=== PATIENT | female | born 1950 | race Two or more races ===

== ENCOUNTER 2017-12-09 19:15 | Inpatient (IN) | payer MEDICARE ==
[~2017-12-09] VITALS: Ht 167.6 cm; Wt 83.5 kg
--- NOTE | 2017-12-09 19:30 | NUR ---
Admitted a 67 y/o female from [facility], on 5250 hold, based on hold patient reported suicidal ideation, was holding a knife and a brick. She continues to have SI "sometimes". Also c/o feeling anxious and poor sleep. Patient reports current stressors includes pending homelessness. Patient admitting dx. of psychosis and medical Dx. GERD. 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 Monson and Dr. Castillo to reconcile medication. Kept clean, dry and comfortable. Will continue to monitor [id number] for safety
[2017-12-09] MEDS ORDERED: MAG HYDROX/AL HYDROX/SIMETH 30 ML UDC PO PRN (21:30)
[2017-12-09] MEDS ORDERED: MAGNESIUM HYDROXIDE 30 ML UDC PO PRN (21:30)
[2017-12-09] MEDS ORDERED: ACETAMINOPHEN 325 MG TABLET PO PRN (21:30)
[2017-12-09] MEDS ORDERED: QUET25TA PO (21:47)
[2017-12-09] MEDS ORDERED: BENZ1LOZ58 MM (21:47)
[2017-12-09] MEDS ORDERED: HYDR-3028 PO (21:47)
[2017-12-09] MEDS ORDERED: TRAZ-147 PO (21:47)
[2017-12-09] MEDS ORDERED: OMEP40CA37 PO (21:47)
[2017-12-09] MEDS: TEMAZEPAM 7.5 MG CAPSULE PO PRN (22:15)
[2017-12-10] MEDS: LORAZEPAM 0.5 MG TABLET PO PRN ×3 (00:17→20:41)
[2017-12-10 00:54] VITALS: BP 117/80
[2017-12-10 03:31] LABS: APPEARANCE,URINE CLEAR (CLEAR); BILIRUBIN,URINE NEGATIVE (NEGATIVE); BLOOD, URINE NEGATIVE Ery/uL (NEGATIVE); COLOR,URINE YELLOW (YELLOW); KETONES,URINE NEGATIVE (NEGATIVE); LEUKOCYTE ESTERASE ,URINE NEGATIVE (NEGATIVE); NITRITE, URINE NEGATIVE (NEGATIVE); PROTEIN,URINE NEGATIVE (NEGATIVE); UGLUCOSE NEGATIVE (NEGATIVE); UROBILINOGEN,URINE 0.2 EU/dL (0.2)
[2017-12-10 08:00] VITALS: BP 111/70
[2017-12-10 08:06] LABS: CHOLESTEROL 227 mg/dL (<200); HDL CHOLESTEROL 50 mg/dL (40-60); LDL 154 mg/dL (0-99); TRIGLYCERIDES 105 mg/dL (30-150)
[2017-12-10 08:08] LABS: BILIRUBIN,TOTAL 0.4 mg/dL (0.2-1.0); CALCIUM, SERUM 8.8 mg/dL (8.5-10.1); CREATININE 0.7 mg/dL (0.6-1.3); POTASSIUM 3.3 mmol/L (3.5-5.1)
[2017-12-10] MEDS ORDERED: MENTHOL/CETYLPYRD (CEPACOL) 1 LOZ LOZENGE MM PRN (09:00)
[2017-12-10] MEDS: PANTOPRAZOLE 40 MG TABLET.DR PO SCH (09:01)
[2017-12-10] MEDS ORDERED: POTASSIUM CHLORIDE 20 MEQ TAB.PRT.SR PO ONE (10:00)
[2017-12-10] MEDS ORDERED: QUETIAPINE FUMARATE 25 MG TABLET PO PRN (14:00)
[2017-12-10 16:00] VITALS: BP 117/68
[2017-12-10] MEDS: QUETIAPINE FUMARATE 25 MG TABLET PO SCH (16:47)
[2017-12-10 20:00] VITALS: BP 96/50
[2017-12-10 20:26] VITALS: BP 96/48
--- NOTE | 2017-12-10 20:46 | NUR ---
RN NOTES COMPLAINED OF FEELING ANXIOUS, ATIVAN 0.5 MG PO GIVEN ORDERED, V/S STABLE
[2017-12-10] MEDS ORDERED: QUETIAPINE FUMARATE 25 MG TABLET PO SCH (22:00)
[2017-12-11 08:00] VITALS: BP 113/69
[2017-12-11] MEDS: PANTOPRAZOLE 40 MG TABLET.DR PO SCH (08:06)
[2017-12-11] MEDS: QUETIAPINE FUMARATE 25 MG TABLET PO SCH ×2 (08:18→16:39)
[2017-12-11] MEDS: LORAZEPAM 0.5 MG TABLET PO PRN ×2 (11:27→19:33)
--- NOTE | 2017-12-11 11:30 | NUR ---
GPS/RN-NOTES PATIENT REQUESTING FOR ATIVAN. STATED" I NEED IT BECAUSE I'M VERY ANXIOUS". ATIVAN 0.5MG P.O GIVEN PRN ORDER. WILL CONT. MONITORING FOR SAFETY AND BEHAVIOR.
--- NOTE | 2017-12-11 12:30 | NUR ---
GPS/RN-NOTES PATIENT IN HER ROOM AWAKE,ALERT CALM NO ACUTE DISTRESS NOTED.
[2017-12-11 16:00] VITALS: BP 105/57
--- NOTE | 2017-12-11 16:32 | NUR ---
Initial Discharge Plan: Pt currently resides by herself at [address] [place] [address], [address], [place] [address] ([phone]). Per pt, she would not like to return to her apartment but does not have anywhere else to go. SW will work with the pt and the MD regarding appropriate discharge plans. SW will form a safe and proper discharge.
[2017-12-11 20:00] VITALS: BP 118/68
[2017-12-11] MEDS: DIVALPROEX SODIUM 250 MG TABLET.DR PO SCH (20:45)
[2017-12-11] MEDS ORDERED: QUETIAPINE FUMARATE 25 MG TABLET PO SCH (22:00)
[2017-12-11] MEDS: TEMAZEPAM 7.5 MG CAPSULE PO PRN (22:32)
[2017-12-12 08:00] VITALS: BP 99/56
[2017-12-12] MEDS: LORAZEPAM 0.5 MG TABLET PO PRN ×2 (09:00→16:15)
[2017-12-12] MEDS: QUETIAPINE FUMARATE 25 MG TABLET PO SCH ×2 (09:00→17:46)
[2017-12-12] MEDS: PANTOPRAZOLE 40 MG TABLET.DR PO SCH (09:00)
[2017-12-12] MEDS: DIVALPROEX SODIUM 250 MG TABLET.DR PO SCH ×2 (09:05→22:16)
[2017-12-12 16:00] VITALS: BP 113/58
--- NOTE | 2017-12-12 16:15 | NUR ---
RN NOTES ADMINISTERED ATIVAN 0.5 MG PO PRN FOR ANXIETY, PER PATIENT REQUEST, V/S TAKEN BP- 121/70, P-100, CONTINUED MONITORING.
[2017-12-12 20:00] VITALS: BP 102/52
[2017-12-12] MEDS ORDERED: QUETIAPINE FUMARATE 25 MG TABLET PO SCH (22:00)
[2017-12-12] MEDS: TEMAZEPAM 7.5 MG CAPSULE PO PRN (22:17)
[2017-12-13 08:00] VITALS: BP 122/62
[2017-12-13] MEDS: QUETIAPINE FUMARATE 25 MG TABLET PO SCH ×3 (08:03→21:59)
[2017-12-13] MEDS: DIVALPROEX SODIUM 250 MG TABLET.DR PO SCH ×2 (08:03→21:58)
[2017-12-13] MEDS: PANTOPRAZOLE 40 MG TABLET.DR PO SCH (08:03)
[2017-12-13] MEDS: LORAZEPAM 0.5 MG TABLET PO PRN (11:25)
--- NOTE | 2017-12-13 11:26 | NUR ---
GPS/RN-NOTES PATIENT REQUESTING FOR ATIVAN. STATED" I NEED IT BECAUSE I'M SHAKING I'M VERY ANXIOUS". ATIVAN 0.5MG P.O GIVEN PRN ORDER. WILL CONT. MONITORING FOR SAFETY AND BEHAVIOR.
--- NOTE | 2017-12-13 12:30 | NUR ---
GPS/RN-NOTES PATIENT WATCHING TV IN THE DAY ROOM,CALM,NO ACUTE DISTRESS NOTED.
[2017-12-13 16:00] VITALS: BP 97/68
[2017-12-13 20:00] VITALS: BP 117/68
[2017-12-13] MEDS: TEMAZEPAM 7.5 MG CAPSULE PO PRN (21:59)
[2017-12-14] MEDS: PANTOPRAZOLE 40 MG TABLET.DR PO SCH (07:47)
[2017-12-14 08:00] VITALS: BP 110/69
[2017-12-14] MEDS: QUETIAPINE FUMARATE 25 MG TABLET PO SCH ×3 (08:38→22:06)
[2017-12-14] MEDS: DIVALPROEX SODIUM 250 MG TABLET.DR PO SCH ×2 (08:38→20:48)
[2017-12-14] MEDS: LORAZEPAM 0.5 MG TABLET PO PRN (13:56)
--- NOTE | 2017-12-14 14:13 | NUR ---
GPS/RN-NOTES PATIENT STATED" I NEED MY ATIVAN BECAUSE I'M ANXIOUS ". ATIVAN 0.5MG P.O GIVEN PRN ORDER. WILL CONT. MONITORING FOR SAFETY AND BEHAVIOR.
[2017-12-14 16:06] VITALS: BP 116/59
[2017-12-14 20:46] VITALS: BP 101/53
[2017-12-14] MEDS: TEMAZEPAM 7.5 MG CAPSULE PO PRN (23:34)
--- NOTE | 2017-12-14 23:34 | NUR ---
TEMAZEPAM 7.5 MG CAP GIVEN FOR SLEEP PER PATIENT'S REQUEST
[2017-12-15 08:00] VITALS: BP 100/55
[2017-12-15] MEDS: DIVALPROEX SODIUM 250 MG TABLET.DR PO SCH ×2 (08:20→22:02)
[2017-12-15] MEDS: QUETIAPINE FUMARATE 25 MG TABLET PO SCH ×3 (08:20→22:02)
[2017-12-15] MEDS: PANTOPRAZOLE 40 MG TABLET.DR PO SCH (08:20)
--- NOTE | 2017-12-15 13:38 | NUR ---
GERARDO spoke to the pt's son, Yvan ([phone]), and informed him about how [facility] accepted her and how that is her discharge plan.
--- NOTE | 2017-12-15 13:41 | NUR ---
SW called the pt's daughter in law, Tete ([phone]), per the pt's request. Tete did not answer and so the SW left a message.
[2017-12-15] MEDS: LORAZEPAM 0.5 MG TABLET PO PRN (13:54)
[2017-12-15 16:00] VITALS: BP 107/58
--- NOTE | 2017-12-15 16:11 | NUR ---
GERARDO spoke to the pt's son, Yvan ([phone]), and answered some more of his questions and informed him of her schedule so that he could stop by and meet with her face to face.
--- NOTE | 2017-12-15 19:30 | NUR ---
GPS RN NOTE, RECEIVED PATIENT AWAKE AND IN BED, PATIENT HAS NO S/S OR COMPLAINTS OF PAIN. PATIENT IS DISPLAYING NO S/S OF APPARENT DISTRESS AT THIS TIME. PATIENT BREATHING IS UNLABORED WITH EQUAL RISE AND FALL OF THE CHEST. PATIENT IS ALERT AND ORIENTED X 3 ON ROOM AIR WITH A SPO2 95%. PATIENT IS MEDICATION COMPLIANT, DISORGANIZED, COOPERATIVE, ANXIOUS AT TIMES, AND NEEDS CONSTANT REORIENTATION. PATIENT DENIES SUICIDE IDEATIONS AND HOMICIDAL IDEATIONS AT THIS TIME. PATIENT ASSISTED WITH TURNING AND REPOSITIONING Q2 HR AND PRN FOR COMFORT AND CIRCULATION. PATIENT HAS NO NEEDS AT THIS TIME. PATIENT EDUCATED ON THE USE OF THE CALL MONTENEGRO. PATIENT BED SIDE RAILS UP X 2 FOR SAFETY, BED LOCKED AND LOW WILL CONTINUE TO MONITOR AND MAINTAIN SAFETY Q15 MIN WITH THE HELP OF STAFF.
[2017-12-15 21:10] VITALS: BP 118/68
[2017-12-16 08:00] VITALS: BP 115/76
[2017-12-16] MEDS: QUETIAPINE FUMARATE 25 MG TABLET PO SCH ×4 (09:00→21:13)
[2017-12-16] MEDS: DIVALPROEX SODIUM 250 MG TABLET.DR PO SCH ×2 (09:10→21:13)
[2017-12-16] MEDS: PANTOPRAZOLE 40 MG TABLET.DR PO SCH (09:10)
[2017-12-16] MEDS: LORAZEPAM 0.5 MG TABLET PO PRN ×2 (13:07→21:13)
[2017-12-16 16:00] VITALS: BP 107/62
[2017-12-16 20:20] VITALS: BP 104/49
--- NOTE | 2017-12-16 21:15 | NUR ---
GPS RN NOTE: PATIENT ANXIOUS , ATIVAN 0.5MG 1 TAB ORAL GIVEN PER MD ORDER. WILL CONTINUE TO MONITOR.
[2017-12-17] MEDS: PANTOPRAZOLE 40 MG TABLET.DR PO SCH (07:30)
[2017-12-17 08:00] VITALS: BP 103/56
[2017-12-17] MEDS: DIVALPROEX SODIUM 250 MG TABLET.DR PO SCH ×2 (08:56→21:42)
[2017-12-17] MEDS: QUETIAPINE FUMARATE 25 MG TABLET PO SCH ×3 (08:59→21:42)
[2017-12-17 17:08] VITALS: BP 135/77
--- NOTE | 2017-12-17 18:55 | NUR ---
GPS RN NOTE, PATIENT HAS A COMPLAINT OF A HEADACHE AT 3 OUT 10 ON THE PAIN SCALE. PATIENT VITAL SIGNS ARE STABLE. GAVE TYLENOL 650MG PO Q6HR PRN ORDERED. WILL REASSESS FOR PAIN AND I WILL CONTINUE TO MONITOR THIS PATIENT.
[2017-12-17 20:49] VITALS: BP 114/71
[2017-12-17] MEDS: LORAZEPAM 0.5 MG TABLET PO PRN (22:04)
[2017-12-18 08:00] VITALS: BP 114/60
[2017-12-18] MEDS: DIVALPROEX SODIUM 250 MG TABLET.DR PO SCH ×3 (08:10→21:42)
[2017-12-18] MEDS: PANTOPRAZOLE 40 MG TABLET.DR PO SCH (08:10)
[2017-12-18] MEDS: QUETIAPINE FUMARATE 25 MG TABLET PO SCH ×3 (08:11→21:42)
[2017-12-18] MEDS: LORAZEPAM 0.5 MG TABLET PO PRN (11:43)
[2017-12-18 16:00] VITALS: BP 109/58
[2017-12-18 20:00] VITALS: BP 109/67
[2017-12-18] MEDS: TEMAZEPAM 7.5 MG CAPSULE PO PRN (21:43)
[2017-12-19 08:00] VITALS: BP 98/47
[2017-12-19] MEDS: PANTOPRAZOLE 40 MG TABLET.DR PO SCH (08:40)
[2017-12-19] MEDS: DIVALPROEX SODIUM 250 MG TABLET.DR PO SCH ×2 (08:44→21:19)
[2017-12-19] MEDS: QUETIAPINE FUMARATE 25 MG TABLET PO SCH ×3 (09:08→21:20)
[2017-12-19] MEDS: LORAZEPAM 0.5 MG TABLET PO PRN (13:29)
--- NOTE | 2017-12-19 13:41 | NUR ---
GPS RN NOTE: PATIENT IN THE ROOM CRYING DEPRESSED MOOD,ATIVAN 0.5 MG PO PRN GIVEN , PT ISOLATIVE STAY IN HER ROOM ,MOOD DEPRESSED,NO INTERACTION WITH PEERS ,NO PLAN FOR SELF CARE .
[2017-12-19 16:00] VITALS: BP 94/64
[2017-12-19 20:00] VITALS: BP 102/50
[2017-12-20 08:00] VITALS: BP 119/64
[2017-12-20] MEDS: DIVALPROEX SODIUM 250 MG TABLET.DR PO SCH ×2 (08:34→21:44)
[2017-12-20] MEDS: PANTOPRAZOLE 40 MG TABLET.DR PO SCH (08:35)
[2017-12-20] MEDS: QUETIAPINE FUMARATE 25 MG TABLET PO SCH ×3 (08:53→21:44)
[2017-12-20] MEDS: LORAZEPAM 0.5 MG TABLET PO PRN (13:20)
--- NOTE | 2017-12-20 13:25 | NUR ---
GPS/RN-NOTES PATIENT STATED" I NEED MY ATIVAN I'M ANXIOUS ". ATIVAN 0.5MG P.O GIVEN PRN ORDER. WILL CONT. MONITORING FOR SAFETY AND BEHAVIOR.
--- NOTE | 2017-12-20 14:30 | NUR ---
GPS/RN-NOTES PATIENT WATCHING TV IN THE DAY ROOM,CALM,NO ACUTE DISTRESS NOTED.
[2017-12-20 16:00] VITALS: BP 113/68
[2017-12-20 20:00] VITALS: BP 108/58
[2017-12-20] MEDS: TEMAZEPAM 7.5 MG CAPSULE PO PRN (21:44)
[2017-12-21] MEDS: PANTOPRAZOLE 40 MG TABLET.DR PO SCH (07:30)
[2017-12-21 08:00] VITALS: BP 100/56
[2017-12-21] MEDS: DIVALPROEX SODIUM 250 MG TABLET.DR PO SCH ×2 (09:58→21:33)
[2017-12-21] MEDS: QUETIAPINE FUMARATE 25 MG TABLET PO SCH ×4 (09:58→21:55)
[2017-12-21] MEDS: LORAZEPAM 0.5 MG TABLET PO PRN (14:22)
--- NOTE | 2017-12-21 14:23 | NUR ---
RN NOTE :PATIENT C/O ANXIETY MEDICATED WITH ATIVAN 0.5MG WILL CONTINUE TO MONITOR.
[2017-12-21 16:00] VITALS: BP 103/53
[2017-12-21 20:20] VITALS: BP 103/62
--- NOTE | 2017-12-21 21:56 | NUR ---
GPS-RN PER PT SON'S REQUEST TO GIVE SLEEPING PILL TO PATIENT. OFFERED RESTORIL ORDERED BUT PATIENT REFUSED.
--- NOTE | 2017-12-22 06:18 | NUR ---
GPS-RN PATIENT REFUSED SKIN BODY ASSESSMENT PATIENT STATED "THEY TOOK IT ALREADY WHEN I CAME" EXPLAINED TO PATIENT THAT WE DO WEEKLY BODY ASSESSMENT. WILL ENDORSE TO THE DAY SHIFT NURSE.
[2017-12-22 08:00] VITALS: BP 100/55
[2017-12-22] MEDS: DIVALPROEX SODIUM 250 MG TABLET.DR PO SCH ×2 (08:57→21:32)
[2017-12-22] MEDS: PANTOPRAZOLE 40 MG TABLET.DR PO SCH (08:57)
[2017-12-22] MEDS: QUETIAPINE FUMARATE 25 MG TABLET PO SCH ×3 (08:58→21:33)
[2017-12-22 16:00] VITALS: BP 100/71
--- NOTE | 2017-12-22 16:03 | NUR ---
GERARDO spoke to the pt's son, Yvan ([phone]), and informed him that the pt will be discharged tomorrow to [facility].
[2017-12-22 20:47] VITALS: BP 115/67
[2017-12-23 08:00] VITALS: BP 105/52
[2017-12-23] MEDS: DIVALPROEX SODIUM 250 MG TABLET.DR PO SCH ×2 (08:44→21:18)
[2017-12-23] MEDS: PANTOPRAZOLE 40 MG TABLET.DR PO SCH (08:44)
[2017-12-23] MEDS: QUETIAPINE FUMARATE 25 MG TABLET PO SCH ×4 (08:44→21:18)
--- NOTE | 2017-12-23 10:16 | NUR ---
SW received word from Abel ([phone]) from [facility] that the pt may be denied today upon discharge.
--- NOTE | 2017-12-23 10:18 | NUR ---
GERARDO faxed a referral for this pt to 3 different [address]: 1. [facility] (fax: [phone]) 2. [facility] (fax: [phone]) 3. [facility] ([phone])
--- NOTE | 2017-12-23 10:35 | NUR ---
Kaitlyn ([phone]) from [facility] called the SW and stated that the pt was not accepted.
--- NOTE | 2017-12-23 10:35 | NUR ---
Aicha ([phone]) from [facility] stated that the pt will not be accepted.
--- NOTE | 2017-12-23 10:56 | NUR ---
Nelida ([phone]) from [facility] called the SW and informed her that the pt will be denied.
[2017-12-23] MEDS: LORAZEPAM 0.5 MG TABLET PO PRN (11:51)
--- NOTE | 2017-12-23 11:52 | NUR ---
GERARDO spoke to the pt's son, Yvan ([phone]), and updated him regarding the pt's discharge plan now that she is no longer going to [facility] ([facility]).
[2017-12-23 16:00] VITALS: BP 115/65
--- NOTE | 2017-12-23 16:11 | NUR ---
Jodie ([phone]) from [place] contacted the SW and inquired about the pt. She stated that she would let the SW know if the pt can be accepted.
--- NOTE | 2017-12-23 17:28 | NUR ---
GPS/RN PATIENT REFUSED SEROQUEL 12.5 MG X 3, EXPLAINED RISKS AND BENEFITS, WILL CONTINUE TO ENCOURAGE TO COMPLY WITH MD REGIMEN.
[2017-12-23 21:16] VITALS: BP 102/52
[2017-12-24] MEDS: PANTOPRAZOLE 40 MG TABLET.DR PO SCH (07:30)
[2017-12-24 08:00] VITALS: BP 97/55
[2017-12-24] MEDS: DIVALPROEX SODIUM 250 MG TABLET.DR PO SCH ×2 (08:58→20:45)
[2017-12-24] MEDS: QUETIAPINE FUMARATE 25 MG TABLET PO SCH ×3 (08:58→20:45)
--- NOTE | 2017-12-24 14:34 | NUR ---
GERARDO called Jodie ([phone]) from [facility] and she stated that the pt cannot be admitted.
--- NOTE | 2017-12-24 14:39 | NUR ---
GERARDO called the pt's son, Yvan ([phone]), and left a message asking him to call back so that a discharge plan can be set up.
--- NOTE | 2017-12-24 15:16 | NUR ---
GERARDO called the pt's son, Yvan ([phone]), and he stated that he can only come picker feeder the pt at around 11:30PM today so the discharge is being set for that time.
--- NOTE | 2017-12-24 15:45 | NUR ---
Discharge Note: Pt was discharged home to [address] [place] [address], [address], [place] [address]; ([phone]). Pt will be picked up by her son, Yvan Treviño ([phone]), who will pick her up at 11:30PM because he works late. Upon discharge, pt was upset and had a depressed mood with a flat affect. Pt stated that she feels hopeless and does not know what to do to make things better. Pt denied both visual and auditory hallucinations and also denied active suicidal and homicidal ideation. SW provided the pt with a list of psychiatrist medicare referrals but highlighted one that would be the best option for her. Pt was referred to be under the care of psychiatrist, Dr. Amber Arias, located at [address] [place] [address]; and travel registered nurse nicu, Dr. Tin Szymanski, located at [address] [place] [address]; [address], [place] [address]; . Referrals: HENOK SMITH Primary specialty: Psychiatry Additional specialty: Psychiatry (Geriatric) [address] [place] [address] AMBER ARIAS Primary specialty: Psychiatry Additional specialty: Psychiatry (Geriatric) [address] [place] [address] MAURICIO GARCIA Primary specialty: Psychiatry Additional specialty: Psychiatry (Geriatric) [address] [place] [address] GOLDY CAICEDO Primary specialty: Psychiatry Additional specialty: Psychiatry (Geriatric) [address] [place] [address]
--- NOTE | 2017-12-24 15:50 | NUR ---
RN-CO: DR GALE SEEN AND EXAMINED PATIENT WITH ORDERS TO DISCONTINUE HOLD AND DISCHARGE PATIENT AT 11:30 PM PER SON'S REQUEST AND AVAILABILITY. PATIENT IS VISIBLE IN THE UNIT, CALM AND COOPERATIVE TO CARE. SHE DENIED AUDITORY AND VISUAL HALLUCINATION, DENIED SUICIDAL AND HOMICIDAL IDEATION. NO ACUTE DISTRESS NOTED AND DENIED PAIN AND DISCOMFORT.
[2017-12-24 16:31] VITALS: BP 113/74
--- NOTE | 2017-12-24 18:19 | NUR ---
RN-CO: DR GALE LEFT A PRESCRIPTION FOR THE PATIENT AND I WILL ENDORSE TO NEXT SHIFT.
--- NOTE | 2017-12-24 18:59 | NUR ---
RN NOTE: CALLED AND MEDICALLY CLEARED PATIENT FOR DISCHARGE .REPORT GIVEN TO INCOMING NURSE.
[2017-12-24 20:24] VITALS: BP 98/62
[2017-12-24] MEDS: TEMAZEPAM 7.5 MG CAPSULE PO PRN (20:45)
--- NOTE | 2017-12-25 00:13 | NUR ---
PATIENT DISCHARGE HOME WITH ACCOMPANIED BY HER SON DENIES ANY PAIN OR DISCOMFORT AT THIS TIME, NO DISTRESS NOTED, PATIENT WAS IN STABLE CONDITIONS, VITAL SIGN IS STABLE PATIENT SIGN DISCHARGE PAPER
== END 2017-12-24 23:59 | disposition home or self-care (01) | DRG 885 ==
LOC: GPS 19:15
PROVIDERS: ADMIT Psychiatry & Neurology Psychiatry; ATTEND Nurse Practitioner Acute Care
DX: F25.0 Schizoaffective disorder, bipolar type (principal); E44.1 Mild protein-calorie malnutrition; F29 Unspecified psychosis not due to a substance or known physiological condition; F41.9 Anxiety disorder, unspecified; E87.6 Hypokalemia; E78.5 Hyperlipidemia, unspecified; E66.9 Obesity, unspecified; Z87.891 Personal history of nicotine dependence; K21.9 Gastro-esophageal reflux disease without esophagitis; F32.9 Major depressive disorder, single episode, unspecified; E88.09 Other disorders of plasma-protein metabolism, not elsewhere classified; Z68.29 Body mass index [BMI] 29.0-29.9, adult; G44.209 Tension-type headache, unspecified, not intractable
CPT/HCPCS: 36415; 80053-TC; 80061-TC; 80164-TC; 81000-TC; 87081-TC; Z7610